=== PATIENT | female | born 1975 | race American Indian/Alaskan Native ===

== ENCOUNTER 2020-06-29 14:03 | Emergency (ER) | payer SELFPAY ==
[2020-06-29 14:25] VITALS: BP 155/92
--- NOTE | 2020-06-29 15:51 | Emergency Department Report ---
ED Laceration HPI - HPI Chief Complaint: Earache Stated Complaint: R EAR PAIN Time Seen by Provider: 06/29/20 14:23 Severity: mild Laceration Symptoms: No Foreign Body Sensation, No Numbness, No Weakness, No Pain Other History: This is a 44-year-old female nontoxic, well nourished in appearance, no acute signs of distress presents to the ED with c/o of right earlobe laceration that occurred last week. Patient stated that she was putting on gauges to the right ear and caused the the ear to split in half. Patient denies decreased sensation or range of motion. Patient currently denies any bleeding. Denies any numbness, tingling, fever, chills, nausea, vomiting, chest pain, shortness of breath, headache or stiff neck. Patient denies any allergies to significant past medical history. ED Review of Systems ROS: Stated complaint: R EAR PAIN Other details as noted in HPI Constitutional: denies: chills, fever Eyes: denies: eye pain, eye discharge, vision change ENT: denies: ear pain, throat pain Respiratory: denies: cough, shortness of breath, wheezing Cardiovascular: denies: chest pain, palpitations Endocrine: no symptoms reported Gastrointestinal: denies: abdominal pain, nausea, diarrhea Genitourinary: denies: urgency, dysuria, discharge Musculoskeletal: denies: back pain, joint swelling, arthralgia Skin: denies: rash, lesions Neurological: denies: headache, weakness, paresthesias Psychiatric: denies: anxiety, depression Hematological/Lymphatic: denies: easy bleeding, easy bruising ED Past Medical Hx - Past Medical History Previous Medical History?: Yes Hx Hypertension: Yes - Surgical History Past Surgical History?: Yes Additional Surgical History: gastric bypass - Medications Home Medications: Home Medications Medication Instructions Recorded Confirmed Last Taken Type Sulfamethoxazole/Trimethoprim 1 each PO BID #14 tablet 06/29/20 Unknown Rx [Bactrim DS TAB] Laceration Physical Exam - Exam General: Vital signs noted. No distress. Alert and acting appropriately. Wound Length (cm): 4 (Split in between earlobes with healed skin to the right earlobe. There is some cellulitis noted but no induration or fluctuance.) Laceration Exam: Yes Normal Distal CMS, No Foreign Body, No Exposed Tendon, Vessel, or Nerve, No Tendon Injury ED Course Vital Signs 06/29/20 14:24 Temperature 98.3 F Pulse Rate 102 H Respiratory 18 Rate Blood Pressure 155/92 O2 Sat by Pulse 100 Oximetry - Reevaluation(s) Reevaluation #1: 06/29/20 15:52 Patient is speaking in full sentences with no signs of distress noted. ED Medical Decision Making - Medical Decision Making This is a 44-year-old female that presents with cellulitis. Patient is stable and was examined by me. There is no induration, fluctuance. No signs of absces s formation. Due to this scan healed and this occurred 1 week ago, laceration closing is not performed and patient given referral to see plastic surgery. The area has been outlined with a permanent marker and patient was instructed to observe symptoms of increased redness or swelling and to return to the ER if this does occur. I will discharge patient with Bactrim. Patient was referred to Follow-up with a primary care doctor in 3-5 days or if symptoms worsen and continue return to emergency room as soon as possible. At time of discharge, the patient does not seem toxic or ill in appearance. No acute signs of distress noted. Patient agrees to discharge treatment plan of care. No further questions noted by the patient. Critical care attestation.: If time is entered above; I have spent that time in minutes in the direct care of this critically ill patient, excluding procedure time. ED Disposition Clinical Impression: Cellulitis of earlobe Qualifiers: Laterality: right Qualified Code(s): H60.11 - Cellulitis of right external ear Disposition: DC-01 TO HOME OR SELFCARE Is pt being admited?: No Does the pt Need Aspirin: No Condition: Stable Instructions: Cellulitis, Adult, [id number] Additional Instructions: Follow-up with a primary care doctor in 3-5 days or if symptoms worsen and continue return to emergency room as soon as possible. Prescriptions: Sulfamethoxazole/Trimethoprim [Bactrim DS TAB] 1 each PO BID #14 tablet Referrals: RENATE GRIFFITH MD [Referring] - 3-5 Days MARK CONTRERAS MD [Staff Physician] - 3-5 Days Forms: Work/School Release Form(ED) Time of Disposition: 15:54
== END 2020-06-29 16:10 | disposition home or self-care (01) ==
LOC: ED 14:03
DX: H60.11 Cellulitis of right external ear (principal); I10 Essential (primary) hypertension; Z98.890 Other specified postprocedural states; Z79.899 Other long term (current) drug therapy
CPT/HCPCS: 99281